=== PATIENT | female | born 1965 | race Caucasian/White ===

== ENCOUNTER 2017-10-07 01:25 | Emergency (ER) | payer SELFPAY ==
[~2017-10-07] VITALS: Ht 154.9 cm; Wt 63.5 kg
[2017-10-07 01:45] VITALS: BP 132/81
[2017-10-07] MEDS ORDERED: cefTRIAXone SOD 1,000 MG VL ONE (04:13)
[2017-10-07] MEDS ORDERED: DEXAMETHASONE SOD PHOS 10MG/1ML VIAL INJ ONE (04:13)
[2017-10-07] MEDS ORDERED: DEXAMETHASONE SOD PHOS 10MG/1ML VIAL INJ IM ONE (04:15)
[2017-10-07] MEDS ORDERED: cefTRIAXone SOD 1,000 MG VL IM ONE (04:15)
== END 2017-10-07 05:11 | disposition home or self-care (01) ==
LOC: ER 01:31
DX: K13.21 Leukoplakia of oral mucosa, including tongue (principal); R21 Rash and other nonspecific skin eruption; F17.290 Nicotine dependence, other tobacco product, uncomplicated; Z88.8 Allergy status to other drugs, medicaments and biological substances
CPT/HCPCS: 70360; 87205; 96372; 99285; J0696; J1100